=== PATIENT | female | born 1990 | race Caucasian/White ===

== ENCOUNTER 2016-09-09 21:59 | Emergency (ER) | payer BC ==
[~2016-09-09 21:59] MED LIST: COLACE100 MG PO; FEROSUL325 ( 65 ) PO; IBUPROFEN800 MG PO; NORCO 5/325 TAB1 TAB PO; PRENATAL1 EACH; SURFAK240 M1 PO; TYLENOL #31 TAB PO; [UNRECOGNIZED DRUG - REMARK]
[2016-11-19] MEDS ORDERED: NO MEDICATION (12:14)
== END 2016-09-10 03:13 | disposition left against medical advice (07) ==
LOC: EDMED 21:59
DX: R04.0 Epistaxis (principal); Z53.21 Procedure and treatment not carried out due to patient leaving prior to being seen by health care provider

== ENCOUNTER 2016-11-23 09:41 | Day surgery (SDC) | payer BC ==
[~2016-11-23 09:41] MED LIST changes: +NO MEDICATION
[2016-11-23 10:38] LABS: INR 1.1 INR (0.9-1.1); PROTHROMBIN TIME 12.6 SECONDS (9.0-13.6)
[2016-11-23 11:13] LABS: URINE BILIRUBIN NEGATIVE (NEG); URINE BLOOD NEGATIVE (NEG); URINE GLUCOSE (UA) NEGATIVE (NEG); URINE KETONE NEGATIVE (NEG); URINE LEUKOCYTE ESTERASE NEGATIVE (NEG); URINE NITRITE NEGATIVE (NEG); URINE PROTEIN NEGATIVE (NEG); URINE SPECIFIC GRAVITY 1.015 (1.003-1.030)
[2016-11-23 11:14] LABS: URINE APPEARANCE CLEAR; URINE COLOR YELLOW
== END 2016-11-23 14:25 ==
LOC: SHSB 09:41 → PACU 12:14 → SHSB 13:05
PROVIDERS: Obstetrics & Gynecology
PROC: 0WJJ4ZZ Inspection of Pelvic Cavity, Percutaneous Endoscopic Approach (ICD-10-PCS; principal; 2016-11-23)
DX: N80.3 Endometriosis of pelvic peritoneum (principal); K21.9 Gastro-esophageal reflux disease without esophagitis; M19.90 Unspecified osteoarthritis, unspecified site; Z98.890 Other specified postprocedural states
CPT/HCPCS: J0690; J1170